=== PATIENT | female | born 1980 | race Caucasian/White ===

== ENCOUNTER 2018-05-31 14:27 | Emergency (ER) | payer BC, OTHER | END 2018-05-31 15:05 | disposition home or self-care (01) | LOC: M ED 15:05 | DX: H10.021 Other mucopurulent conjunctivitis, right eye (principal); Z79.3 Long term (current) use of hormonal contraceptives | CPT/HCPCS: 99283 ==

== ENCOUNTER → 2019-11-30 | Outpatient (CLI) | payer BC ==
[~2019-11-30] MED LIST: ERRI0.355 PO; ERYTOIN8 OD; MELO15TA28 PO; TIZA2CAP PO; VITA1TAB23 PO
== END ==
LOC: M LABSMTC 13:25
PROVIDERS: ATTEND Family Medicine
DX: Z11.59 Encounter for screening for other viral diseases (principal); Z20.828 Contact with and (suspected) exposure to other viral communicable diseases

== ENCOUNTER 2020-03-23 07:24 | Emergency (ER) | payer OTHER, BC ==
[~2020-03-23] VITALS: Ht 167.6 cm; Wt 145.4 kg
[~2020-03-23 07:24] MED LIST changes: +ASCO250T20 PO; +RALTEGRAVIR 400 MG TAB (ISENTRESS) PO SCH; -VITA1TAB23 PO
[2020-03-23] MEDS ORDERED: TRUVADA 200MG/300MG TABLET PO ONE (08:00)
[2020-03-23] MEDS ORDERED: RALTEGRAVIR 400 MG TAB (ISENTRESS) PO ONE (08:00)
[2020-03-23] MEDS ORDERED: EXPOSURE KIT-ADULT 7 DAY SUPPLY PO ONE (08:00)
[2020-03-23] MEDS ORDERED: TRUVTAB PO (08:04)
[2020-03-23] MEDS ORDERED: RALT40TA PO (08:04)
[2020-03-23 08:27] LABS: BASO % 0.4 % (0.0-1.0); EOS # 0.1 10^3/uL (0.0-0.5); EOS % 1.9 % (0.0-3.0); HEMATOCRIT 41.4 % (36.0-47.0); HEMOGLOBIN 13.6 g/dl (12.0-15.5); LYMPH # 1.3 10^3/uL (1.5-5.0); LYMPH % 17.3 % (24.0-44.0); MEAN CORPUSCULAR HEMOGLOBIN 30.4 pg (27.0-33.0); MEAN CORPUSCULAR HGB CONC 32.9 g/dl (32.0-36.5); MEAN CORPUSCULAR VOLUME 92.4 fl (80.0-96.0); MONO # 0.4 10^3/uL (0.0-0.8); MONO % 4.8 % (0.0-5.0); NEUTROPHILS # 5.5 10^3/uL (1.5-8.5); NEUTROPHILS % 75.2 % (36.0-66.0); PLATELET COUNT, AUTOMATED 344 10^3/uL (150-450); RED BLOOD COUNT 4.48 10^6/uL (4.00-5.40); WHITE BLOOD COUNT 7.3 10^3/uL (4.0-10.0)
[2020-03-23 08:52] LABS: ALBUMIN 3.4 GM/DL (3.2-5.2); ALT/SGPT 14 U/L (12-78); BILIRUBIN,TOTAL 0.4 MG/DL (0.2-1.0); BLOOD UREA NITROGEN 11 MG/DL (7-18); CALCIUM LEVEL 8.7 MG/DL (8.5-10.1); CARBON DIOXIDE LEVEL 30 MEQ/L (21-32); CHLORIDE LEVEL 106 MEQ/L (98-107); CREATININE FOR GFR 0.79 MG/DL (0.55-1.30); GLOMERULAR FILTRATION RATE > 60.0 (>60); GLUCOSE, FASTING 107 MG/DL (70-100); POTASSIUM SERUM 4.2 MEQ/L (3.5-5.1); SODIUM LEVEL 140 MEQ/L (136-145); TOTAL PROTEIN 6.9 GM/DL (6.4-8.2)
[2020-03-23 08:56] LABS: HCG, SERUM QUALITATIVE NEGATIVE (NEGATIVE)
[2020-03-23 09:08] VITALS: BP 153/87
[2020-03-24] MEDS ORDERED: TRUVADA 200MG/300MG TABLET PO SCH
[2020-03-25 10:08] LABS: HEPATITIS B SURFACE ANTIBODY NEGATIVE (POSITIVE)
[2020-03-25 10:18] LABS: HEPATITIS B SURFACE ANTIGEN NEGATIVE (NEGATIVE)
[2020-03-25 10:47] LABS: HEPATITIS C VIRUS ABY INDEX 0.1 INDEX (<0.8); HIV 1&2 SCREEN CENTAUR NEGATIVE (NEGATIVE)
== END 2020-03-23 09:20 | disposition home or self-care (01) ==
LOC: M ED 07:24
DX: Z77.21 Contact with and (suspected) exposure to potentially hazardous body fluids (principal); S61.234A Puncture wound without foreign body of right ring finger without damage to nail, initial encounter; W27.2XXA Contact with scissors, initial encounter; Y92.238 Other place in hospital as the place of occurrence of the external cause; Y93.89 Activity, other specified; Y99.0 Civilian activity done for income or pay; Z79.3 Long term (current) use of hormonal contraceptives

== ENCOUNTER → 2020-07-13 | Outpatient (CLI) | payer OTHER, BC ==
[~2020-07-13] MED LIST changes: +METO1TAB32 PO; +RALT40TA PO; -RALTEGRAVIR 400 MG TAB (ISENTRESS) PO SCH; +TRUVTAB PO; +[UNRECOGNIZED DRUG - CODE] PO
== END ==
LOC: M LABSMTC 08:10
PROVIDERS: ATTEND Anesthesiology
DX: Z01.812 Encounter for preprocedural laboratory examination (principal); Z20.828 Contact with and (suspected) exposure to other viral communicable diseases

== ENCOUNTER 2020-07-17 06:12 | Day surgery (SDC) | payer BC ==
[~2020-07-17] VITALS: Ht 167.6 cm; Wt 168.7 kg
[2020-07-17] MEDS ORDERED: ceFAZolin SOD 2 GM in IV 1 EA IV ONE (07:00)
[2020-07-17] MEDS ORDERED: LR 1,000 ML IV ONE (07:00)
[2020-07-17] MEDS ORDERED: dexameTHASONE 4 MG/ML 1ML VIAL (J1100 PER 1MG) As Ordered ONE (07:04)
[2020-07-17] MEDS ORDERED: BUPIVACAINE HCL 0.5% 10ML VIAL As Ordered ONE (07:04)
[2020-07-17] MEDS ORDERED: LIDOCAINE 1% MDV 20ML VIAL As Ordered ONE (07:04)
[2020-07-17] MEDS ORDERED: propofoL 200 MG/20 ML VIAL As Ordered ONE (07:22)
[2020-07-17] MEDS ORDERED: fentaNYL 100 MCG/2 ML INJECTION (J3010) As Ordered ONE (07:22)
[2020-07-17] MEDS ORDERED: MIDAZOLAM INJ 2MG/2ML VIAL (J2250 PER 1MG) As Ordered ONE (07:22)
[2020-07-17] MEDS ORDERED: ONDANSETRON 4MG/2ML VIAL As Ordered ONE (07:22)
[2020-07-17] MEDS ORDERED: LIDOCAINE 2% 100MG/5ML SDV (FOR ANES.) As Ordered ONE (07:22)
[2020-07-17] MEDS ORDERED: KETOROLAC 60MG 2ML VIAL As Ordered ONE (08:03)
[2020-07-17] MEDS ORDERED: HYDR-3713 PO ×2 (08:17→10:07)
[2020-07-17 08:50] VITALS: BP 131/63
--- NOTE | 2020-07-17 09:45 | RO ---
OPERATIVE NOTE DATE OF OPERATION: 07/17/2020 SURGEON: Juan Boles DPM GYPSUM CALCINER: None PREOPERATIVE DIAGNOSIS: Right foot ganglion cyst. POSTOPERATIVE DIAGNOSIS: Right foot ganglion cyst. PROCEDURE: Right foot ganglion cyst excision. ANESTHESIA: Monitored anesthesia care; preop injection of 15 mL of 1:1 mixture of 1% Lidocaine plain and 0.5% Marcaine plain. ESTIMATED BLOOD LOSS: Minimal. MATERIALS: 4-0 Vicryl and 4-0 nylon. INJECTABLES: 1 mL Decadron 4 mg/mL. COMPLICATIONS: None. CONDITION: Stable. INDICATIONS FOR PROCEDURE: Kathrin Vera is a 39-year-old female who presents with a painful cyst to her right foot. She has had previous injection treatments without resolution of her discomfort and MRI confirmed the presence of a cyst. She presents today for surgery. The patient's side and site were identified and marked in the preoperative area. Consent was reviewed and obtained. The risks, complications, and alternatives to the procedure were explained to the patient in detail and all questions were answered. DESCRIPTION OF PROCEDURE: The patient was brought to the operating room and placed on the operating room table in the supine position. Monitored anesthesia care was delivered by the anesthesia team. A preop injection of 15 mL of 1:1 mixture of 1% Lidocaine plain and 0.5% Marcaine plain were injected into the right foot. The right foot was prepped and draped in the normal sterile fashion. A tourniquet was applied to the right ankle and inflated at 250 mmHg. The cyst was palpated on the dorsal lateral foot. An incision was made overlying this and carried through with a #15 blade. Small skin vessels were cauterized with Bovee. The cyst was discovered and carefully dissected free using a tenotomy scissor. This measured approximately 5 mm in diameter. This was excised in total and sent to pathology. The site was then irrigated with normal saline. The incision was repaired using 4-0 Vicryl and 4-0 nylon. One mL of Decadron was injected. Sterile dressing was applied. Tourniquet was deflated. The patient was brought to the PACU with vital signs stable and neurovascular status intact. She will be weightbearing as tolerated. She will follow up in the office in two days.
== END 2020-07-17 09:18 | disposition home or self-care (01) ==
LOC: M SDC 06:12
PROVIDERS: ATTEND Podiatrist Foot & Ankle Surgery
DX: M67.471 Ganglion, right ankle and foot (principal)
CPT/HCPCS: 28090; 81025; 88304; J0690; J1100; J1885; J2250; J2405; J3010

== ENCOUNTER → 2021-02-17 | Outpatient (REF) ==
[~2021-02-17] MED LIST changes: +EMTR1TAB16 PO; +HYDR-3713 PO; -TRUVTAB PO
== END ==
LOC: M EMP 08:08
PROVIDERS: ATTEND Family Medicine
DX: Z11.52 Encounter for screening for COVID-19 (principal)